=== PATIENT | female | born 1995 | race Caucasian/White ===

== ENCOUNTER 2016-08-09 21:15 | Emergency (ER) | payer OTHER ==
[~2016-08-09] VITALS: Ht 162.6 cm; Wt 64.0 kg
[~2016-08-09 21:15] MED LIST: SERT50TA PO
[2016-08-09 21:22] VITALS: Ht 162.6 cm; Wt 64.0 kg
[2016-08-09] MEDS ORDERED: ONDANSETRON (ODT) 4 MG TAB ODT STA (22:20)
[2016-08-09 23:38] LABS: URINE BLOOD (Dip) POC Negative (NEGATIVE)
--- NOTE | 2016-08-10 00:33 | RADRPT ---
PROCEDURE: CHEST - 1 VIEW CLINICAL INDICATION: 21-year-old female with cough. TECHNIQUE: A single frontal AP portable view of the chest was performed. The images were reviewed on a PACS workstation. COMPARISON: None. FINDINGS: The patient has had a prior median sternotomy. The cardiomediastinal silhouette has a normal appear ance. There is no evidence for an infiltrate. The pulmonary vascularity is within normal limits. Th ere is no evidence for pneumothorax or pneumomediastinum. IMPRESSION: 1. Status post median sternotomy. 2. No evidence for active cardiopulmonary disease. .Lang Tobar MD, MD Date Time Electronically viewed and signed by .Lagn Tobar MD, MD on 08/10/2016 00:33 .M/
[2016-08-10] MEDS ORDERED: ONDA4TAB14 PO (00:54)
--- NOTE | 2016-08-10 01:03 | ERD ---
ER Documentation Chief Complaint Date/Time DATE: 08/10/16 TIME: 00:56 Chief Complaint nausea with vomting for 2 weeks, started having chest pain today HPI Patient is a 21-year-old female who has past medical history of VSD, presents to the emergency department with concerns of nausea, and chest pain. Patient states her nausea and vomiting have been ongoing for the last 2 weeks. She reports vomiting once throughout the last week. Patient does report dry heaving throughout the day. Patient states that her dry heaving at random times throughout the day. She denies any fevers, chills, abdominal pain or diarrhea. Patient states she developed chest pain this morning. Patient states the pain is localized to her mid sternum and is episodic in nature. Pain is nonradiating, nonpleuritic. Patient denies any shortness of breath. Patient does report stopping her Adderall 3 days ago. Patient denies OCP use, recent travel, recent surgeries, leg swelling. ROS All systems reviewed and are negative except as per history of present illness. Medications Home Meds Active Scripts Ondansetron (Ondansetron Odt) 4 Mg Tab.rapdis, 4 MG PO Q6H Y for NAUSEA AND/OR VOMITING, #10 TAB Prov:RENATA SAMUEL PA-C 08/10/16 Reported Medications Sertraline Hcl* (Zoloft*) 50 Mg Tablet, 50 MG PO DAILY 11/21/10 Allergies Allergies: Coded Allergies: No Known Drug Allergies (Verified Allergy, Unknown, 01/20/14) PMhx/Soc History of Surgery: Yes (VSD CLOSURE) Anesthesia Reaction: No Hx Neurological Disorder: No Hx Respiratory Disorders: No Hx Cardiac Disorders: Yes (VSD CLOSURE 1YR OLD, MURMUR HEARD BY PMD YESTERDAY) Hx Psychiatric Problems: No Hx Miscellaneous Medical Probl: No Hx Alcohol Use: No Hx Substance Use: No Hx Tobacco Use: No Smoking Status: Never smoker Physical Exam Vitals Vital Signs Date Time Temp Pulse Resp B/P Pulse Ox O2 Delivery O2 Flow Rate FiO2 08/09/16 21:22 97.8 82 18 137/71 98 Physical Exam GENERAL: Well-developed, well-nourished female. Appears in no acute distress. Speaking in full sentences HEAD: Normocephalic, atraumatic. EYES: Pupils are equally reactive bilaterally. EOMs grossly intact. No conjunctival erythema. ENT: Moist mucous membranes. No uvula deviation. No kissing tonsils. NECK: Supple. No meningismus. Normal range of motion of the neck. LUNG: Clear to auscultation bilaterally. No rhonchi, wheezing, rales or coarse breath sounds. HEART: Regular rate and rhythm. No murmurs, rubs or gallops. ABDOMEN: No scars, ecchymosis or rashes noted. Soft, nontender, and nondistended. Positive bowel sounds in all four quadrants. No rebound tenderness , no guarding. (-) McBurney's point tenderness. No CVA tenderness. BACK: No midline tenderness. EXTREMITIES: Equal pulses bilaterally. No peripheral clubbing, cyanosis or edema. No unilateral leg swelling. NEUROLOGIC: Alert and oriented. Moving all four extremities without any difficulty. Normal speech. Steady gait. SKIN: Normal color. Warm and dry. No rashes or lesions. Results 24 hrs Laboratory Tests Test 08/09/16 23:41 Bedside Urine pH (LAB) 5.5 Bedside Urine Protein (LAB) Negative Bedside Urine Glucose (UA) Negative Bedside Urine Ketones (LAB) Negative Bedside Urine Blood Negative Bedside Urine Nitrite (LAB) Negative Bedside Urine Leukocyte Esterase (L Negative Current Medications Medications (Trade) Dose Ordered Sig/Yasemin Route PRN Reason Start Time Stop Time Status Last Admin Dose Admin Ondansetron HCl (Zofran Odt) 4 mg ONCE STAT ODT 08/09/16 22:20 08/09/16 22:23 DC 08/09/16 22:28 Procedures/MDM ED COURSE: The patient was stable throughout ED course. I kept the patient and/or family informed of laboratory and diagnostic imaging results throughout the ED course. EKG: Read by Dr. Garcia, attending physician. EKG shows normal sinus rhythm at a rate of 76 bpm. No arrhythmias, acute ST elevations or T wave changes were noted. DIAGNOSTIC IMAGING: Read by radiologist. DIAGNOSTIC IMAGING REPORT Patient: DARIEN FLOWER : 1995 Age: 21 Sex: F MR #: [id number] DOS: 08/09/160 Ordering MD: RENATA SAMUEL PA-C Location: [facility] Room/Bed: PROCEDURE: CHEST - 1 VIEW CLINICAL INDICATION: 21-year-old female with cough. TECHNIQUE: A single frontal AP portable view of the chest was performed. The images were reviewed on a PACS workstation. COMPARISON: None. FINDINGS: The patient has had a prior median sternotomy. The cardiomediastinal silhouette has a normal appearance. There is no evidence for an infiltrate. The pulmonary vascularity is within normal limits. There is no evidence for pneumothorax or pneumomediastinum. IMPRESSION: 1. Status post median sternotomy. 2. No evidence for active cardiopulmonary disease. .Lang Tobar MD, Date Time Electronically viewed and signed by .Lang Tobar MD, on 08/10/2016 00:33 .M/ CC: RENATA SAMUEL PA-C PROCEDURES: None. MEDICATIONS GIVEN: Zofran Patient tolerated medication well with no adverse reactions. MEDICAL DECISION MAKING: This is a 21-year-old female presents with chest pain 1 day, nausea and vomiting for the last 2 weeks. Patient denied any leg swelling, recent surgeries, travel, exogenous estrogen use. Vital signs were reviewed. Patient was afebrile. Patient was not hypoxic. Cardiac exam was normal. Lung exam was normal. EKG was within normal limits. Chest x-ray was within normal limits. Patient was given Zofran here in the ED for her nausea. Patient no additional episodes of vomiting. Patient reported improvement in nausea. Patient's urine test was negative. Urine dip was negative for acute infection or hematuria. Low suspicion for acute coronary syndrome, arrhythmia or pericarditis, PE, pneumothorax, pneumonia, pleural effusion, appendicitis, cholecystitis, or acute abdominal process. Patient's symptoms may be due to recently stopping Adderall. Patient was advised to follow-up with her primary care physician in regards to being tapered off this medication. PRESCRIPTIONS: Zofran DISCHARGE: At this time, patient is stable for discharge and outpatient management. I have instructed the patient to follow-up with his/her primary care physician in 1-2 days. If symptoms persist, patient may need to see a specialist for further examinations and testing. I have instructed the patient to promptly return to the ER at any time for any new or worsening symptoms including increased increased pain, fever, nausea, vomiting, numbness, weakness, diaphoresis or LOC. The patient and/or family expressed understanding of and agreement with this plan. All questions were answered. Home care instructions were provided. Departure Diagnosis: Primary Impression: Nausea & vomiting Vomiting type: unspecified Vomiting Intractability: unspecified Qualified Code: R11.2 - Nausea and vomiting, intractability of vomiting not specified, unspecified vomiting type Additional Impression: Chest pain Chest pain type: unspecified Qualified Code: R07.9 - Chest pain, unspecified type Condition: Stable Patient Instructions: Nausea and Vomiting-Adult, Chest Pain, Uncertain Cause Referrals: ROSAS BOYD MD,ARIADNE ULRICH,MAYDA RAMIRES,SAM Medina MD [facility] YOU HAVE RECEIVED A MEDICAL SCREENING EXAM AND THE RESULTS INDICATE THAT YOU DO NOT HAVE A CONDITION THAT REQUIRES URGENT TREATMENT IN THE EMERGENCY DEPARTMENT. FURTHER EVALUATION AND TREATMENT OF YOUR CONDITION CAN WAIT UNTIL YOU ARE SEEN IN YOUR DOCTORS OFFICE WITHIN THE NEXT 1-2 DAYS. IT IS YOUR RESPONSIBILITY TO MAKE AN APPOINTMENT FOR [facility] CARE. IF YOU HAVE A PRIMARY DOCTOR --you should call your primary doctor and schedule an appointment IF YOU DO NOT HAVE A PRIMARY DOCTOR YOU CAN CALL OUR PHYSICIAN REFERRAL HOTLINE AT IF YOU CAN NOT AFFORD TO SEE A PHYSICIAN YOU CAN CHOSE FROM THE FOLLOWING [facility] [address] [facility]. [facility] [address] [facility] [address] [facility] [facility] [address] [facility]. [facility] [address] [facility] [address] [facility] YOU HAVE RECEIVED A MEDICAL SCREENING EXAM AND THE RESULTS INDICATE THAT YOU DO NOT HAVE A CONDITION THAT REQUIRES URGENT TREATMENT IN THE EMERGENCY DEPARTMENT. FURTHER EVALUATION AND TREATMENT OF YOUR CONDITION CAN WAIT UNTIL YOU ARE SEEN IN YOUR DOCTORS OFFICE WITHIN THE NEXT 1-2 DAYS. IT IS YOUR RESPONSIBILITY TO MAKE AN APPOINTMENT FOR [facility] CARE. IF YOU HAVE A PRIMARY DOCTOR --you should call your primary doctor and schedule and appointment IF YOU DO NOT HAVE A PRIMARY DOCTOR YOU CAN CALL OUR PHYSICIAN REFERRAL HOTLINE AT . IF YOU CAN NOT AFFORD TO SEE A PHYSICIAN YOU CAN CHOSE FROM THE FOLLOWING [facility] INSTITUTIONS: [facility] [address] [place] [address] [facility] [address] [place] [address] [facility] + [facility] [address] [place] [address] Additional Instructions: Call your primary care doctor TOMORROW for an appointment during the next 1-2 days.See the doctor sooner or return here if your condition worsens before your appointment time. Patient advised to follow-up with [facility] for her concerns of chest pain. See Referral list. RENATA SAMUEL PA-C August 10, 2016 01:02
[2016-08-10 01:06] VITALS: PULSE 78; RESP 16
== END 2016-08-10 01:06 | disposition home or self-care (01) ==
LOC: FTE 21:15
DX: R11.2 Nausea with vomiting, unspecified (principal); R07.9 Chest pain, unspecified
CPT/HCPCS: 71010; 81003; Z7610; 93005